=== PATIENT | female | born 1950 | race Asian ===

== ENCOUNTER 2023-06-20 14:11 | Emergency (ER) | payer OTHER ==
[~2023-06-20] VITALS: Ht 157.5 cm; Wt 59.1 kg
[~2023-06-20 14:11] MED LIST: BACL10TA PO; CHOL400T56 PO; FOLI-74 PO; HYDR12.56 PO; LISI20TA24 PO
[2023-06-20 14:15] VITALS: TEMP 98.3
[2023-06-20 16:59] LABS: BASOPHILS % (AUTO) 0.8 % (0.0-2.0); EOSINOPHILS % (AUTO) 2.1 % (1.0-6.0); HEMATOCRIT 43.8 % (36-46); HEMOGLOBIN 13.9 g/dL (12.0-16.0); LYMPHOCYTES # (AUTO) 1.9 K/uL (1.0-4.8); LYMPHOCYTES % (AUTO) 28.5 % (22.0-44.0); MEAN CORPUSCULAR HEMOGLOBIN 30.4 pg (26.0-34.0); MEAN CORPUSCULAR HGB CONC 31.8 G/dL (31.0-37.0); MEAN CORPUSCULAR VOLUME 96 fL (80-100); MONOCYTES # (AUTO) 0.4 K/uL (0.1-1.0); MONOCYTES % (AUTO) 5.7 % (2.0-9.0); NEUTROPHILS # (AUTO) 4.2 K/uL (1.8-7.7); NEUTROPHILS % (AUTO) 62.9 % (40.0-70.0); PLATELET COUNT (AUTO) 171 K/uL (150-450); RED BLOOD CELL COUNT(AUTO) 4.58 MIL/uL (4.00-5.20); WHITE BLOOD COUNT (AUTO) 6.6 K/uL (4.5-11.0)
[2023-06-20] MEDS ORDERED: DICL100G60 TP (17:01)
[2023-06-20] MEDS ORDERED: SACU1TAB7 PO (17:01)
[2023-06-20] MEDS ORDERED: CARV25TA32 PO (17:01)
[2023-06-20] MEDS ORDERED: ASPI-1444 PO (17:01)
[2023-06-20] MEDS ORDERED: ALLO100T PO (17:01)
[2023-06-20] MEDS ORDERED: MONT-40 PO (17:01)
[2023-06-20] MEDS ORDERED: ISOS30TA92 PO (17:01)
[2023-06-20] MEDS ORDERED: FLUT1BLS3 IH (17:01)
[2023-06-20] MEDS ORDERED: GABA-529 PO (17:01)
[2023-06-20] MEDS ORDERED: MELO-106 PO (17:01)
[2023-06-20] MEDS ORDERED: AMLO10TA55 PO (17:01)
[2023-06-20] MEDS ORDERED: DOCU-412 PO (17:01)
[2023-06-20] MEDS ORDERED: SIMV10TA97 PO (17:01)
[2023-06-20 17:14] LABS: CALCIUM, TOTAL 9.5 mg/dL (8.8-10.5); CREATININE 1.03 mg/dL (0.60-1.30); POTASSIUM 3.8 mmol/L (3.5-5.1)
[2023-06-20 17:22] LABS: ALBUMIN 4.2 g/dL (3.4-5.0); BILIRUBIN,TOTAL 0.4 mg/dL (0.1-1.0)
[2023-06-20] MEDS ORDERED: ACET-66 PO (17:22)
[2023-06-20] MEDS: ACETAMINOPHEN 500 MG TABLET PO ONE (17:23)
[2023-06-20 18:04] VITALS: BP 141/66; PULSE 72; RESP 18
== END 2023-06-20 18:05 | disposition home or self-care (01) ==
LOC: EMS 14:11
DX: M79.672 Pain in left foot (principal); M79.671 Pain in right foot; I10 Essential (primary) hypertension; Z87.440 Personal history of urinary (tract) infections
CPT/HCPCS: 80053; 85025; 93005; 93970; 99284